=== PATIENT | female | born 1955 | race Caucasian/White ===

== ENCOUNTER → 2017-03-02 | Outpatient (CLI) | payer OTHER ==
[~2017-03-02] MED LIST: REGADENOSON 0.4 MG/5 ML SYRINGE ONE
== END | disposition home or self-care (01) ==
LOC: CFH 07:11
PROVIDERS: ATTEND Internal Medicine Cardiovascular Disease
DX: R94.31 Abnormal electrocardiogram [ECG] [EKG] (principal); R01.1 Cardiac murmur, unspecified; F12.90 Cannabis use, unspecified, uncomplicated
CPT/HCPCS: 78452; 93017; 93306; A9502; J2785